=== PATIENT | female | born 1955 | race Caucasian/White ===

== ENCOUNTER 2020-02-13 09:45 | Outpatient (REF) | payer OTHER, SELFPAY ==
--- NOTE | 2020-02-13 15:45 | MHC.AU.P13 ---
Hearing Aid Evaluation- Binaural Date of Visit: 02/13/20 Description of Hearing: Madyson brings with her a hearing test performed on 02/04/2020 at [facility]. Test results indicate mild sloping to prfound high frequency sensorineural hearing loss bilaterally with 84% speech discrimination for the right ear and 96% for the left ear at 65 dB HL Summary: Discussed the pros and cons of the various hearing aid styles and manufactures. Also extensively discussed realistic expectations of amplification and the need to wear the aids every day, all day for aids to be beneficial. Patient has difficulty with ear moisture so discussed the rechargeable style will be the most waterproof . Hearing Instrument Selection: Right Ear: Supervisor Alum Plant: Phonak Model: Audeo M 70 R Battery Size: Rechargeable Color: [place] Green Building Energy Engineer: #1 medium Type of Dome: small or medium open Left Ear: Supervisor Alum Plant: Phonak Model: Audeo M 70-R Battery Size: Rechargeable Color: [place] Green Building Energy Engineer: #1 medium Type of Dome: small or medium open Recommendations: Recommendations: Quote will be sent to [facility]. A signed medical clearance form is required from a physician. Diagnosis Code(s): Primary Diagnosis: H90.3 Bilateral Sensorineural Hearing Loss Services Performed: Hearing Aid Evaluation and Earmold:: Hearing Aid Evaluation- Binaural Signature: Student/Clinical Fellow: No I have reviewed/agreed with student/fellow documentation: N/A Provider: Cally Joe, [facility]
== END 2020-02-13 09:46 | disposition home or self-care (01) ==
LOC: HO.SH 09:45
PROVIDERS: PCP Internal Medicine Geriatric Medicine; Visit Provider Internal Medicine Geriatric Medicine
DX: H90.3 Sensorineural hearing loss, bilateral (principal)
CPT/HCPCS: 92591

== ENCOUNTER 2020-04-02 09:49 | Outpatient (REF) | payer OTHER, SELFPAY | END 2020-04-02 09:50 | disposition home or self-care (01) | LOC: HO.HAP 09:49 | PROVIDERS: PCP Internal Medicine Geriatric Medicine; Referring Provider Internal Medicine Geriatric Medicine; Visit Provider Internal Medicine Geriatric Medicine | DX: H90.3 Sensorineural hearing loss, bilateral (principal); Z46.1 Encounter for fitting and adjustment of hearing aid | CPT/HCPCS: 92595; V5011; V5020; V5160; V5261 ==

== ENCOUNTER 2020-04-19 09:37 | Outpatient (REF) | payer OTHER, SELFPAY | END 2020-04-19 09:38 | disposition home or self-care (01) | LOC: HO.HAP 09:37 | PROVIDERS: PCP Internal Medicine Geriatric Medicine; Referring Provider Internal Medicine Geriatric Medicine; Visit Provider Internal Medicine Geriatric Medicine | DX: Z13.89 Encounter for screening for other disorder (principal) | CPT/HCPCS: 92700 ==

== ENCOUNTER 2020-06-03 09:22 | Outpatient (REF) | payer SELFPAY | END 2020-06-03 09:23 | disposition home or self-care (01) | LOC: HO.HAP 09:22 | PROVIDERS: Visit Provider Internal Medicine Geriatric Medicine | DX: Z13.89 Encounter for screening for other disorder (principal) ==

== ENCOUNTER 2020-08-11 08:31 | Outpatient (REF) | payer SELFPAY | END 2020-08-11 08:32 | disposition home or self-care (01) | LOC: HO.HAP 08:31 | PROVIDERS: Visit Provider Internal Medicine Geriatric Medicine | DX: Z13.89 Encounter for screening for other disorder (principal) ==

== ENCOUNTER 2020-08-13 08:35 | Outpatient (REF) | payer SELFPAY | END 2020-08-13 08:36 | disposition home or self-care (01) | LOC: HO.HAP 08:35 | PROVIDERS: Visit Provider Internal Medicine Geriatric Medicine | DX: Z13.89 Encounter for screening for other disorder (principal) ==

== ENCOUNTER 2020-08-23 14:43 | Outpatient (REF) | payer SELFPAY ==
--- NOTE | 2020-08-23 15:09 | MHC.AU.HFU ---
Hearing Instrument Follow-Up- Binaural Date of Visit: 08/23/20 Right Ear: Data Integration Developer: Phonak Model: Audeo M 70 R Serial Number: [id number] Repair Warranty: 05/30/2023 Loss and Damage Warranty: 05/30/2023 Battery Size: Rechargeable Color: [place] Dental Intern: #0 medium Type of Dome: small vented Type of Wax Guard: CeruShield Left Ear: Data Integration Developer: Phonak Model: Audeo M 70-R Serial Number: [id number] RepairWarranty: 05/30/2023 Loss and Damage Warranty: 05/30/2023 Battery Size: Rechargeable Color: [place] Dental Intern: #0 medium Type of Dome: small vented Type of Wax Guard: CeruShield Follow-Up Summary: Nick's left hearing aid was dropped off on 08/16/2020, reporting it was not working or charging properly. When initially placed in the pheresis nurse, the light would not turn on. When it was taken out and placed back in, the light would blink then stay red. It would not turn back on either manually or through use of the pheresis nurse. It was also noted that the nurse reviewer wire was bent backwards, suggesting that there may be issues with how the patient is placing the instrument in her ear or how it is fitting in her ear. Recommendations: Recommendations:The instrument was sent out for repair. The pheresis nurse is in the repair drawer. Patient will be contacted when the repaired instrument has returned. Diagnosis Code(s): Primary Diagnosis: H90.3 Bilateral Sensorineural Hearing Loss Signature: Provider: Cally Luna, [facility]
== END 2020-08-23 14:44 | disposition home or self-care (01) ==
LOC: HO.HAP 14:43
PROVIDERS: Visit Provider Internal Medicine Geriatric Medicine
DX: Z13.89 Encounter for screening for other disorder (principal)

== ENCOUNTER 2020-09-02 12:52 | Outpatient (REF) | payer SELFPAY | END 2020-09-02 12:53 | disposition home or self-care (01) | LOC: HO.HAP 12:52 | PROVIDERS: Visit Provider Internal Medicine Geriatric Medicine | DX: Z13.89 Encounter for screening for other disorder (principal) ==

== ENCOUNTER 2020-09-06 15:47 | Outpatient (REF) | payer SELFPAY ==
--- NOTE | 2020-09-07 11:24 | MHC.AU.P13 ---
Hearing Instrument Problem Date of Visit: 09/07/20 Right Ear: Polarity Tester: Phonak Model: Audeo M 70 R Serial Number: [id number] Repair Warranty: 05/30/2023 Loss and Damage Warranty: 05/30/2023 Battery Size: Rechargeable Color: [place] Clothes Marker: #0 medium Type of Dome: small vented Type of Wax Guard: CeruShield Left Ear: Polarity Tester: Phonak Model: Audeo M 70-R Serial Number: [id number] Repair Warranty: 05/30/2023 Loss and Damage Warranty: 05/30/2023 Battery Size: Rechargeable Color: [place] Clothes Marker: #0 medium Type of Dome: small vented Type of Wax Guard: CeruShield Follow-Up Summary: Right aid was dropped off stating not working and missing wire. Aid needed to be fully charged, cleaned and replaced wax guard and small vented dome, added retention tail (assuming that is wire patient stated missing) - aid amplifying clearly. Scheduling appointment for last picker. Signature: Provider: BENJA Reyes-HIS
== END 2020-09-06 15:48 | disposition home or self-care (01) ==
LOC: HO.HAP 15:47
PROVIDERS: Visit Provider Internal Medicine Geriatric Medicine
DX: Z13.89 Encounter for screening for other disorder (principal)

== ENCOUNTER 2020-10-05 09:27 | Outpatient (REF) | payer SELFPAY | END 2020-10-05 09:28 | disposition home or self-care (01) | LOC: HO.HAP 09:27 | PROVIDERS: Visit Provider Internal Medicine Geriatric Medicine | DX: Z13.89 Encounter for screening for other disorder (principal) ==

== ENCOUNTER 2021-01-07 09:50 | Outpatient (REF) | payer SELFPAY | END 2021-01-07 09:51 | disposition home or self-care (01) | LOC: HO.HAP 09:50 | PROVIDERS: Visit Provider Internal Medicine Geriatric Medicine | DX: Z13.89 Encounter for screening for other disorder (principal) ==

== ENCOUNTER 2022-04-18 09:45 | Outpatient (REF) | payer SELFPAY ==
--- NOTE | 2022-04-18 14:49 | MHC.AU.HFU ---
Hearing Instrument Follow-Up- Binaural Date of Visit: 04/18/22 Right Ear: Serial Number: Palma [id number]-R, [id number], sandalwood Repair Warranty: 05/31/2023 Loss and Damage Warranty: 05/31/2023 Battery Size: Rechargeable Color: [place] Gas Examiner: #0 medium Type of Dome: small vented Type of Wax Guard: CeruShield Dispensed By: [facility] Date of Fittin04/02/2020 Left Ear: Serial Number: Palma [id number]-R, [id number], sandalwood Repair Warranty: 05/31/2023 Loss and Damage Warranty: 05/31/2023 Battery Size: Rechargeable Gas Examiner: #0 medium Type of Dome: small vented Type of Wax Guard: CeruShield Dispensed By: [facility] Date of Fittin04/02/2020 Follow-Up Summary: The patient is here today for a hearing aid check as her right hearing aid has not been working for the past month. She also reports right ear pain for the past 1-2 weeks. She had cerumen removed at her PCPs office yesterday, right ear had more cerumen than the left ear. She states they used both a curette and irrigation to remove the cerumen. She was put on amoxicillin as her right ear canal appeared red yesterday. Otoscopy today is unremarkable. No cerumen or redness noted in either ear. I counseled the patient that some times with cerumen removal, it can take a few days for fullness/discomfort to resolve. I suggested she continue on the antibiotic as prescribed and see how her ears feel once she completes the regimen. She is in the process of getting a new ENT ([facility]) and is waiting to be scheduled with them. She should reach out to her PCP should ear discomfort persist after the next 1-2 weeks. Note, the patient states she often builds up cerumen and does experience ear pain typically when she does have a build up. Hearing aid check reveals cerumen/debris on the domes/wax guards. I replaced them and thoroughly brushed/cleaned right and left hearing aids. I also cleaned the hearing aid tool and die maker. Listening check reveals clear sound. The patient was very happy to report good sound bilaterally. We reviewed cleaning and hearing aid care. I recommended an updated audiogram and explained the need for an order from her PCP to schedule. Additional follow-up as needed. No charge today, under warranty. Diagnosis Code(s): Primary Diagnosis: H90.3 Bilateral Sensorineural Hearing Loss Signature: Provider: Cally Joseph, CCC-A
== END 2022-04-18 09:46 | disposition home or self-care (01) ==
LOC: HO.HAP 09:45
PROVIDERS: Visit Provider Internal Medicine Geriatric Medicine
DX: Z13.89 Encounter for screening for other disorder (principal)

== ENCOUNTER 2023-04-11 08:51 | Outpatient (AMB) | payer MEDICARE, MEDICAID, SELFPAY ==
--- NOTE | 2023-04-11 08:51 | AM.OFFWIN_ITS ---
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 Patient Tobacco Use Status: Never used Tobacco Allergies codeine Adverse Reaction (Intermediate, Verified 04/11/23 08:52) Vomiting HPI HPI Comments History of Present Illness Details She presents to office with ear wax build up bilaterally + hearing aids Feels iike pressure R side and a little in left No drainage No fever or chills + intermitent headache/dizzy which she a lways gets with earwax PFSH Social History Patient Tobacco Use Status: Never used Tobacco Review of Systems Const Denies fever(s) and Reports headache(s) ENT Reports dizziness, Reports headache(s), Reports hearing loss, Denies nasal congestion, Denies nasal discharge, Denies neck mass and Denies sore throat Neuro Reports dizziness and Reports headache(s) Physical Exam Vital Signs: Last Vital Signs Pulse 67 04/11/23 08:54 BP 146/80 H 04/11/23 08:54 Pulse Ox 97 04/11/23 08:54 Oxygen Delivery Method Room Air 04/11/23 08:54 BMI result Body Mass Index 32.8 General: Non-toxic, NAD. Speaking full sentences. Skin: Warm dry throughout HENT: Cerumen bilaterally but can visualize Tm without erythema. Post procedure, canals clear TM non-erythematous, non-bulging. No TM perforation or hemotympanum noted. Respiratory: No respiratory distress MSK: Full ROM extremities. Neurology: No aphasia or facial droop. Gait without abnormality Psych: Good mood and affect Office Procedures Cerumen Removal From which ear canal was the cerumen removed: bilateral Removal: otoscope w/curette Notes: patient tolerated procedure well, no complications and ear canal clear [id number] Wax Removal by Spoon/Curette Assessment & Plan Assessment & Plan (1) Impacted cerumen of both ears: Code(s): H61.23 - Impacted cerumen, bilateral Plan: Patient seen and evaluated. Verbal consent obtained, Curette used to remove cerumen bilaterally Canals clear without TM erythema, perforation. No canal FB or edema noted. Pt tolerated well without complication Coding Level of Care Code New Pt Level 3 (74421) Diagnoses Impacted cerumen of both ears H61.23 CPT Codes Office Procedure - CPT: 00047-Jps Wax Removal by Spoon/Curette ([id number])
[2023-04-11 08:54] VITALS: BP 146/80; PULSE 67; O2SAT 97; BMI 32.8
== END 2023-04-11 10:22 | disposition home or self-care (01) ==
PROVIDERS: PCP Internal Medicine Geriatric Medicine; Visit Provider Physician Assistant
DX: H61.23 Impacted cerumen, bilateral (principal)
CPT/HCPCS: 69210; 99203

== ENCOUNTER 2023-05-12 09:07 | Outpatient (AMB) | payer MEDICARE, MEDICAID, SELFPAY ==
--- NOTE | 2023-05-12 10:08 | MHC.OFFWIV ---
Intake Vital Signs 05/12/23 10:15 Height 5 ft 3 in Weight 185 lb BMI 32.8 BP 154/90 H Blood Pressure Location Rt brachial Position Sitting Pulse 74 Pulse Source Pulse Oximeter Pulse Oximetry (%) 99 Oxygen Delivery Method Room Air Intake Visit Reasons: EST/right ear pain ([phone]) Intake Note: Pt is here today c/o Rt ear pain x6days Patient Tobacco Use Status: Never used Tobacco Allergies codeine Adverse Reaction (Intermediate, Verified 05/12/23 10:09) Vomiting Do you need a note to return to daycare/school/sports/work: No HPI HPI Comments History of Present Illness Details This is a 67-year-old female presenting for evaluation of right ear pain that she has had for the past 6 days. Patient describes an aching pain in her right ear that has worsened slightly over the past 3 days. Patient has taken Tylenol without relief of her discomfort. She denies having any fevers, chills, sore throat or difficulty swallowing. Additionally, patient denies any recent sick contacts. PFSH Social History Patient Tobacco Use Status: Never used Tobacco Review of Systems Const Denies chills, Denies fatigue and Denies fever(s) Eyes Reports no additional complaints ENT Reports otalgia (right), Denies mouth pain, Denies sinus pain, Denies sinus pressure and Denies sore throat Card Reports no additional complaints Resp Reports no additional complaints Neuro Reports no additional complaints Endo Denies fatigue Physical Exam Vital Signs: Last Vital Signs Pulse 74 05/12/23 10:15 BP 154/90 H 05/12/23 10:15 Pulse Ox 99 05/12/23 10:15 Oxygen Delivery Method Room Air 05/12/23 10:15 BMI result Body Mass Index 32.8 T 98.9 Const General: cooperative, healthy appearing, comfortable, no acute distress, alert and awake Nutritional Appearance: well nourished Orientation/consciousness: patient oriented x3 Limitations: no limitations HEENT Head: Yes normal to inspection Ears: hearing grossly normal bilaterally, external ears normal, right TM abnormal (TM erythematous, bulging, no fluid level), TM normal on the left and EAC's normal General nose exam: Normal external nose present Face and sinus: Yes normal facial exam and No sinus tenderness Mouth: Normal oral and palatal mucosa present, tongue normal and moist mucous membranes Teeth and gingiva: dentition normal Throat: Yes posterior oropharynx normal (There is no edema, erythema or exudates of the posterior oropharynx) and No postnasal drainage Eyes Conjunctivae: conjunctivae normal Sclerae: sclerae normal Corneas: corneas normal Pupils: Equal, round and reactive pupils present EOM: EOMs intact bilaterally Neck Lymphatic: no lymphadenopathy noted Cardio Rate: regular rate Rhythm: regular rhythm Neuro General: patient oriented x3 Cranial nerves: Yes Equal, round and reactive pupils present Psych Appearance: grossly normal Mental Status: mental status grossly normal Insight: Good insight present (Psych) Judgement: Good judgement present (Psych) Assessment & Plan Assessment & Plan (1) Otitis media of right ear: Code(s): H66.91 - Otitis media, unspecified, right ear Plan: Amoxicillin t.i.d. x7 days; Tylenol or ibuprofen as needed for discomfort. Medications: New amoxicillin 500 mg PO TID 21 caps 0RF Coding Level of Care Code New Pt Level 3 (30158) Diagnoses Otitis media of right ear H66.91 Time Spent (min) 20
[2023-05-12 10:15] VITALS: BP 154/90; PULSE 74; O2SAT 99; BMI 32.8
== END 2023-05-12 11:19 | disposition home or self-care (01) ==
PROVIDERS: PCP Internal Medicine Geriatric Medicine; Visit Provider Physician Assistant
DX: H66.91 Otitis media, unspecified, right ear (principal)
CPT/HCPCS: 99051; 99203

== ENCOUNTER 2023-11-09 13:02 | Outpatient (AMB) | payer MEDICARE, SELFPAY ==
[2023-11-09 13:23] VITALS: BP 130/82; PULSE 75; TEMP 37; O2SAT 97; BMI 30.7
--- NOTE | 2023-11-09 13:23 | AM.OFFWIN_ITS ---
Intake Vital Signs 11/09/23 13:23 Height 5 ft 3 in Weight 173 lb 8 oz BMI 30.7 BP 130/82 Blood Pressure Location Lt brachial Position Sitting Pulse 75 Pulse Source Pulse Oximeter Temp 98.6 F Temp Source Oral Pulse Oximetry (%) 97 Intake Visit Reasons: EP Ears/throat Intake Note: pt is here for ears and throat discomfort Patient Tobacco Use Status: Never used Tobacco Allergies codeine Adverse Reaction (Intermediate, Verified 11/09/23 13:23) Vomiting Do you need a note to return to daycare/school/sports/work: No HPI HPI Comments History of Present Illness Details 68 y/o female patient who presents to [facility] in clinic with c/o nasal congestion, sore throat and dry cough x 7 days. PFSH Social History Patient Tobacco Use Status: Never used Tobacco Review of Systems Const All systems reviewed & are unremarkable except as noted in HPI and below Physical Exam Vital Signs: Last Vital Signs Temp 98.6 F 11/09/23 13:23 Pulse 75 11/09/23 13:23 BP 130/82 11/09/23 13:23 Pulse Ox 97 11/09/23 13:23 BMI result Body Mass Index 30.7 Const General: comfortable and no acute distress Nutritional Appearance: overweight Orientation/consciousness: patient oriented x3 HEENT Head: Yes normocephalic Ears: external ears normal and TM abnormal with fluid behind the TM bilateral General nose exam: Abnormal mucous membranes and turbinates present boggy and erythematous Face and sinus: Yes sinuses nontender Mouth: moist mucous membranes Throat: Yes posterior oropharynx normal Resp Effort & Inspection: normal respiratory effort and able to speak in complete se ntences Auscultation: clear to auscultation bilaterally, no crackles, no rales, no rhonchi and no wheezes Cardio Rate: regular rate Rhythm: regular rhythm Neuro General: patient oriented x3, gait normal and moves all extremities Psych Speech and movement: Normal speech and movement present Results AMB Rapid Strep AMB Rapid Strep Negative Last Edit by Darrin Astudillo CMA on 11/09/23 13 :44 Assessment & Plan Assessment & Plan (1) Allergic rhinitis: Code(s): J30.9 - Allergic rhinitis, unspecified Qualifiers: Allergic rhinitis trigger: unspecified Allergic rhinitis seasonality: seasonal Qualified Code(s): J30.2 - Other seasonal allergic rhinitis Plan: Zyrtec BID (AM and PM) Flonase BID (2 Puffs each Nostril). OTC Sore throat remedies Warm fluids with honey Rest Orders: Orders AMB Rapid Strep Screen Today Z13.9 - Encounter for screening, unspecified Medications: New cetirizine (Zyrtec) TAKE DIRECTED BY 10 mg PO DAILY PRN 90 tabs 0RF allergy symptoms Coding Level of Care Code Est Pt Level 3 (47303) Diagnoses Seasonal allergic rhinitis, unspecified trigger J30.2 Allergic rhinitis trigger: unspecified Allergic rhinitis seasonality: seasonal Time Spent (min) 15
== END 2023-11-09 14:02 | disposition home or self-care (01) ==
PROVIDERS: PCP Internal Medicine Geriatric Medicine; Visit Provider Nurse Practitioner Family
DX: J30.2 Other seasonal allergic rhinitis (principal)
CPT/HCPCS: 87880; 99213

== ENCOUNTER 2023-12-11 09:42 | Outpatient (REF) | payer SELFPAY ==
--- NOTE | 2023-12-11 10:31 | MHC.AU.HA3 ---
Hearing Instrument Follow-Up- Binaural Date of Visit: 12/11/23 Right Ear: Lawrence, Model, Color, Serial Number: Palma Hernandez [id number]-[id number] SN: [id number] Color: [place] Drawing Tracer Repair Warranty: 05/31/2023 Drawing Tracer Loss and Damage Warranty: 05/31/2023 Battery Size: Rechargeable Cruise Agent/Slim Tube: 0M Earmold/Dome/CShell/SlimTip:Small vented dome (no retention tail) Type of Wax Guard: CeruShield Dispensed By: [facility] Date of Fittin04/02/2020 Left Ear: Lawrence, Model, Color, Serial Number: Palma Hernandez [id number] SN: [id number] Color: [place] Drawing Tracer Repair Warranty: 05/31/2023 Drawing Tracer Loss and Damage Warranty: 05/31/2023 Battery Size: Rechargeable Cruise Agent/Slim Tube: 0M Earmold/Dome/CShell/SlimTip: Small vented dome (no retention tail) Type of Wax Guard: CeruShield Dispensed By: [facility] Date of Fittin04/02/2020 Follow-Up Summary: Both hearing aids, senior staff psychologist, cord, and wall plug dropped off reporting right hearing aid . 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 Multiple CeruShields in right port traffic manager, occluded with wax. Left wax guard partially occluded. Able to remove all wax guards from right port traffic manager. Cleaned both hearing aids. Replaced domes and wax guards. Vacuumed microphones. Ran through dehumidifier. Listening check demonstrated hearing aids amplifying clearly. Connected to [employer] to check for firmware updates, none available. Data logging showed about 2.5 hours of use/day. Recommendations: Hearing instrument follow-up or maintenance as needed. Please contact our clinic with any questions or concerns. Diagnosis Code(s): Primary Diagnosis: H90.3 Bilateral Sensorineural Hearing Loss Signature: Provider: Mika Gomes, [facility]
== END 2023-12-11 09:43 | disposition home or self-care (01) ==
LOC: HO.HAP 09:42
PROVIDERS: Visit Provider Internal Medicine Geriatric Medicine
DX: Z46.1 Encounter for fitting and adjustment of hearing aid (principal); H90.3 Sensorineural hearing loss, bilateral
CPT/HCPCS: 92593

== ENCOUNTER 2024-04-12 10:09 | Outpatient (AMB) | payer OTHER, SELFPAY ==
[2024-04-12 11:26] VITALS: BP 144/78; PULSE 64; TEMP 36.8; O2SAT 99; BMI 30.6
--- NOTE | 2024-04-12 11:26 | MHC.OFFWIV ---
Intake Vital Signs 04/12/24 11:26 Height 5 ft 3 in Weight 173 lb BMI 30.6 BP 144/78 H Blood Pressure Location Lt brachial Position Sitting Pulse 64 Pulse Source Pulse Oximeter Temp 98.2 F Temp Source Oral Pulse Oximetry (%) 99 Oxygen Delivery Method Room Air Intake Visit Reasons: EP Poked herself in the eye Intake Note: Pt is here today c/o Lt eye irritation due to poking it with eye drop medication Patient Tobacco Use Status: Never used Tobacco Allergies codeine Adverse Reaction (Intermediate, Verified 04/18/24 08:26) Vomiting HPI EP Poked herself in the eye HPI Details Patient is a 68-year-old female with history of glaucoma, who was putting in her eye drops with the when she poked herself in the left eye with the tip of the bottle. She woke up the next morning with redness, and irritation with discharge to the left eye. No report of headache or dizziness, fever chills, myalgias or malaise or other significant associated systemic symptoms of infection. [facility] Social History Patient Tobacco Use Status: Never used Tobacco Review of Systems Const All systems reviewed & are unremarkable except as noted in HPI and below Physical Exam Vital Signs: Last Vital Signs Temp 98.2 F 04/12/24 11:26 Pulse 64 04/12/24 11:26 BP 144/78 H 04/12/24 11:26 Pulse Ox 99 04/12/24 11:26 Oxygen Delivery Method Room Air 04/12/24 11:26 BMI result Body Mass Index 30.6 Eyes General: appearance abnormal, both eyes Alignment and Position: alignment normal and position normal Periorbital: periorbital findings normal Eyelids: Yes eyelids normal Conjunctivae: conjunctival abnormal left Sclerae: scleral abnormal Corneas: corneas abnormal (superficial uptake as pictured) on the left and fluorescein used Pupils: Equal, round and reactive pupils present EOM: EOMs intact bilaterally Eyes/upper lids images: 1. superficial abrasion appearance of uptake on exam Neuro Cranial nerves: Yes Equal, round and reactive pupils present Assessment & Plan Assessment & Plan (1) Conjunctival abrasion: Code(s): S05.00XA - Injury of conjunctiva and corneal abrasion without foreign body, unspecified eye, initial encounter Qualifiers: Encounter type: initial encounter Laterality: left Qualified Code(s): S05.02XA - Injury of conjunctiva and corneal abrasion without foreign body, left eye, initial encounter Plan Patient is a 68-year-old female with history of glaucoma, who was putting in her eye drops with the when she poked herself in the left eye with the tip of the bottle. It was apparently sterile, however she woke up the next morning with redness, and irritation with discharge to the left eye. No report of headache or dizziness, fever chills, myalgias or malaise or other significant associated systemic symptoms of infection. She had relief with tetracaine, and then under fluorescein staining, I was able to see an abrasion pattern of fluorescein uptake to her left eye as described above. I wrote her for a course of trimethoprim B sulfa eye drops, and I advised that she follow up with her performing arts technicians on Sunday or Sunday for re-evaluation to be sure that it is healing. She can be evaluated in the emergency department if she develops any worrisome symptoms in the meantime. Medications: New polymyxin B sulf-trimethoprim 10,000 unit- 1 mg/mL while awake; do not exceed 6 doses in 24 hours 1 drp ophthalmic (eye) QID 10 mL 0RF 5 days Coding Level of Care Code Est Pt Level 4 (41714) Diagnoses Abrasion of left conjunctiva, initial encounter S05.02XA Encounter type: initial encounter Laterality: left
== END 2024-04-12 13:26 | disposition home or self-care (01) ==
PROVIDERS: PCP Internal Medicine Geriatric Medicine; Visit Provider Physician Assistant Medical
DX: S05.02XA Injury of conjunctiva and corneal abrasion without foreign body, left eye, initial encounter (principal)

== ENCOUNTER → 2024-04-18 08:06 | Outpatient (BNVA) | payer OTHER, SELFPAY | PROVIDERS: PCP Internal Medicine Geriatric Medicine; Visit Provider Physician Assistant ==

== ENCOUNTER 2024-04-18 08:10 | Outpatient (AMB) | payer OTHER, SELFPAY ==
[2024-04-18 08:11] VITALS: BP 130/90; PULSE 71; TEMP 36.7; O2SAT 98; BMI 30.1
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
== END 2024-04-18 08:58 | disposition home or self-care (01) ==
PROVIDERS: PCP Internal Medicine Geriatric Medicine; Visit Provider Physician Assistant
DX: J01.80 Other acute sinusitis (principal)

== ENCOUNTER 2024-12-08 13:30 | Outpatient (AMB) | payer OTHER, SELFPAY ==
--- OUTSIDE RECORDS SUMMARY | 2024-12-08 14:11 | XMS_ITS | Data Portability ---
Author Organization [place] - [facility], Allergy Address [address] [address] Care Team Providers Care Senior Director Finance Name Role Phone SHABNAMBARON SANDY Primary Care Provider [phone] Assessment Encounter Date Assessment Date Assessment LastModified by Organization Details LastModified Time 08/01/2024 08/01/2024 69yo female presents for evaluation of nasal congestion. She contracted the flu 4 months ago and reports nasal congestion since. She trialed amoxicillin for 7 days with moderate symptom improvement. Nasal endoscopy demonstrates left-sided mucopus at the middle meatus. No obvious nasal polyps or obstruction. Recommend Augmentin twice daily for 21 days. Patient will continue saline irrigations. We discussed that with her history of glaucoma, she should discontinue intranasal fluticasone until approved by her site supervisor. Recommend alternating between acetaminophen and ibuprofen for facial pain as tolerated. Patient will follow-up in 3 to 4 weeks for reevaluation. She agrees to postpone her dental implant surgery until medically cleared. [email or web address] Not available 08/01/2024 12:07:06 10/10/2024 10/10/2024 69-year-old female presents for reevaluation of acute sinusitis. Symptoms resolved with Augmentin. She is asymptomatic today. She reports nasal congestion recurrence only when she turns the heat on in her home, and plans to have her heat system cleaned. Cerumen impactions removed bilaterally. TMs are normal to inspection. Hearing returned to baseline after debridement. Anterior rhinoscopy with 1+ inferior turbinate hypertrophy. Recommend continuation of Xyzal as needed for subjective allergic rhinitis. Patient will follow-up in 1 year for routine cerumen debridement. All questions answered. [email or web address] Not available 10/10/2024 16:41:26 Plan of Treatment Reminders Order Date Submit Date Provider Last Modified By Organization Details Last Modified Time Details Appointments Establish ed 15 2025 03:45P M YVONNE LINDSEY PA-C Not available Not available Not available Lab None recorded. Referral None recorded. Procedures None recorded. Surgeries None recorded. Imaging None recorded. Medication Orders amoxicill in 875 mg-potass ium clavulana te 125 mg tablet 2024 025 [place] [id number], [address] [place], [place], [phone], 10/10/2024 16:06:57 Patient TargetsNo targets recorded. Patient InstructionsNo instructions recorded. Reason for Referral None Reported. Problems Name Problem SNOMED Code Status Onset Date Resolution Date Notes Provider Name and Address Organization Details Recorded Time Peritonsi llar abscess 84737769 Active 2017 Peritonsi llar abscess; Note: Date Diagnosed : 07/09/2017 5:13 PM (J36) Not Available [facility] 4 02:56:31 Acute tonsillit is 66646171 Active 2017 Acute tonsillit is due to other specified organisms ; Note: Date Diagnosed : 07/09/2017 5:09 PM (J03.8) Not Available [facility] 4 02:56:32 Impacted cerumen in right ear 44511952475 60147 Active 2022 Impacted cerumen, right ear; Note: Date Diagnosed : 09/25/2022 9:44 AM (H61.21) Not Available [facility] 4 02:56:30 Otalgia of right ear 7298380974 Active 2022 Otalgia, right ear; Note: Date Diagnosed : 09/25/2022 9:44 AM (H92.01) Not Available [facility] 4 02:56:31 Polyp of nasal cavity 395422311 Active 2023 Nasophary ngeal polyp; Note: Date Diagnosed : 06/07/2023 9:23 AM (J33.0) Not Available [facility] 4 02:56:30 Mass of neck 657961460 Active 2023 Localized swelling, mass and lump, neck; Note: Date Diagnosed : 06/07/2023 9:23 AM (R22.1) Not Available [facility] 4 02:56:30 Neck swelling 622059120 Active 2023 Localized swelling, mass and lump, neck; Note: Date Diagnosed : 06/07/2023 9:23 AM (R22.1) Not Available [facility] 4 02:56:30 Nasal congestio n 79583649 Active 2024 YVONNE LINDSEY PA-C [address], [place], [address] , [facility] - [facility] 5 21:10:04 Acute sinusitis 45069822 Active 2024 YVONNE LINDSEY PA-C [address] [facility], [place], [address] , [place] - [facility] [place] [place] 5 09:44:25 Impacted cerumen of bilateral ears 67755456440 88253 Active 2024 YVONNE LINDSEY PA-C [address], [place], [address] , [place] - [facility] [place] 16:41:46 Problem Notes None recorded. Procedures Surgical History Date Name Laterality Status Provider Name and Address Organization Details Recorded Time Cerumen removal without microscope bilat completed YVONNE LINDSEY PA-C [address] [facility], [place], [address], [facility] - [facility] 10/10/2024 16:23:34 NasalEndoscopy_ DP completed YVONNE LINDSEY PA-C [address],[place] [facility], [place], [address], [facility] - [facility] 08/01/2024 09:48:53 Imaging Results None recorded. Procedure Notes None recorded. Medical Equipment None Reported. Allergies Allergen ID Allergen Name Allergen Category Reaction Reaction Severity Criticality Documentation Date Start Date Code Code System Note Provider Name and Address Organization Details Recorded Time 76781 codeine sulfate medicatio n other Not available Not available 09/25/2023 90562 RxNorm React ion: unkno wn, unspe cifie d;; Not Available [facility] 01:06:08 Medications Name Sig Start Date Stop Date Status Note LastModified by Organization Details LastModified Time doxycycli ne hyclate 100 mg capsule TAKE 1 CAPSULE BY MOUTH TWICE DAILY FOR 7 DAYS 08/01 completed Not Available Not Available Not Available atorvasta tin 20 mg tablet TAKE 1 TABLET BY MOUTH DAILY active Not Available Not Available No t Available lisinopri l 20 mg-hydroc hlorothia zide 12.5 mg tablet TAKE 2 TABLETS BY MOUTH DAILY 08/01 completed Not Available Not Available Not Available brinzolam rudy 1 % eye drops,allison pension 08/01 completed Medicati on ID: [id number] B rand Name: burak ordaz Sen d Method: E-Prescr ibed Sub s Allowed: subs OK Medic ationGen ericName : brinzola josee Not Available Not Available Not Available prednison e 20 mg tablet Take 2 tablet by mouth every morning as directed 08/01 completed Medicati on ID: [id number] D uration Value: 2 Prescri bed By Name: Zohreh Barahona nd Name: predniso ne Send Method: E-Prescr ibed Sub s Allowed: subs OK Speci al Instruct ion: 2 tabs daily for 2 days Med icationG enericNa me: predniso ne Not Available Not Available Not Available penicilli n V potassium 500 mg tablet TAKE 1 TABLET BY MOUTH FOUR TIMES DAILY 08/01 completed Not Available Not Available Not Available amlodipin e 2.5 mg tablet 08/01 completed Medicati on ID: [id number] B rand Name: amlodipi ne Send Method: E-Prescr ibed Sub s Allowed: subs OK Medic ationGen ericName : amlodipi ne Not Available Not Available Not Available doxycycli ne monohydra te 100 mg tablet 08/01 completed Medicati on ID: [id number] B rand Name: doxycycl ine monohydr ate Send Method: E-Prescr ibed Sub s Allowed: subs OK Medic ationGen ericName : doxycycl ine monohydr ate Not Available Not Available Not Available amoxicill in 500 mg tablet TAKE 4 TABLETS BY MOUTH 1 TIME FOR 1 DAY TAKE 4 TABLETS 30 MINUTES BEFORE DENTAL VISITS 08/01 completed Not Available Not Available Not Available prednisol one acetate 1 % eye drops,allison pension 08/01 completed Medicati on ID: [id number] B rand Name: predniso lone acetate Send Method: E-Prescr ibed Sub s Allowed: subs OK Medic ationGen ericName : predniso lone acetate Not Available Not Available Not Available polymyxin B sulfate 10,000 unit-trim ethoprim 1 mg/mL eye drops 08/01 completed Not Available Not Available Not Available Claritin- D 12 Hour 5 mg-120 mg tablet,ex tended release active Medicati on ID: [id number] B rand Name: Claritin -D 12 Hour Sen d Method: E-Prescr ibed Sub s Allowed: subs OK Speci al Instruct ion: TAKE 1 TABLET BY MOUTH EVERY 12 HOURS FOR 7 DAYS Med ication enericNa me: Claritin -D 12 Hour Not Available Not Available Not Available omeprazol e 20 mg capsule,d elayed release TAKE 1 CAPSULE BY MOUTH DAILY active Not Available Not Available No t Available lisinopri l 20 mg-hydroc hlorothia zide 25 mg tablet TAKE 2 TABLETS BY MOUTH DAILY active Not Available Not Available No t Available aspirin 81 mg chewable tablet 08/01 completed Medicati on ID: [id number] B rand Name: aspirin Send Method: E-Prescr ibed Sub s Allowed: subs OK Medic ationGen ericName : aspirin Not Available Not Available Not Available hydroxyzi ne HCl 25 mg tablet 08/01 completed Medicati on ID: [id number] B rand Name: hydroxyz ine HCl Send Method: E-Prescr ibed Sub s Allowed: subs OK Medic ationGen ericName : hydroxyz ine HCl Not Available Not Available Not Available lovastati n 20 mg tablet 08/01 completed Medicati on ID: [id number] D uration Value: 30 Brand Name: lovastat in Send Method: E-Prescr ibed Sub s Allowed: subs OK Medic ationGen ericName : lovastat in Not Available Not Available Not Available timolol maleate 0.5 % eye drops INSTILL 1 DROP TO BOTH EYES EVERY MORNING 08/01 completed Not Available Not Available Not Available celecoxib 100 mg capsule TAKE 1 CAPSULE BY MOUTH TWICE DAILY NEEDED FOR SEVERE PAIN 08/01 completed Not Available Not Available Not Available fluticaso ne propionat e 50 mcg/actua tion nasal spray,allison pension active Medicati on ID: [id number] B rand Name: fluticas one propiona te Send Method: E-Prescr ibed Sub s Allowed: subs OK Medic ationGen ericName : fluticas one propiona te Not Available Not Available Not Available doxycycli ne hyclate 100 mg tablet TAKE 1 TABLET BY MOUTH TWICE DAILY 08/01 completed Not Available Not Available Not Available loratadin e 10 mg tablet 08/01 completed Medicati on ID: [id number] B rand Name: loratadi ne Send Method: E-Prescr ibed Sub s Allowed: subs OK Speci al Instruct ion: TAKE 1 TABLET BY MOUTH DAILY Me dication GenericN fish: loratadi ne Not Available Not Available Not Available diazepam 5 mg tablet TAKE 1/2 TABLET BY MOUTH 1 HOUR BEFORE PROCEDUR E. MAY REPEAT 1 TIME ON ARRVAL NEEDED 08/01 completed Not Available Not Available Not Available amoxicill in 875 mg-potass ium clavulana te 125 mg tablet TAKE 1 TABLET BY MOUTH EVERY 12 HOURS WITH MEALS 10/10 completed Not Available Not Available Not Available Combigan 0.2 %-0.5 % eye drops 08/01 completed Not Available Not Available Not Available Lumigan 0.01 % eye drops 08/01 completed Medicati on ID: [id number] B rand Name: Lumigan Send Method: E-Prescr ibed Sub s Allowed: subs OK Medic ationGen ericName : Lumigan Not Available Not Available Not Available Simbrinza 1 %-0.2 % eye drops,allison pension SHAKE LIQUID AND INSTILL 1 DROP IN BOTH EYES TWICE DAILY active Not Available Not Available No t Available Rhopressa 0.02 % eye drops INSTILL 1 DROP IN BOTH EYES EVERY EVENING active Not Available Not Available No t Available Vitals Date Recorded Body height Body mass index (BMI) Body weight Provider Name and Address Organization Details Last Updated DateTime 08/01/2024 160.02 cm 29.9 kg/m2 64295.11 g DAVID TROTTER [place] - [facility] 08/01/2024 09:25:37 Date Recorded Body height Body mass index (BMI) Body weight Provider Name and Address Organization Details Last Updated DateTime 10/10/2024 160.02 cm 31 kg/m2 23120.66 g Aylin Rubi [place] - [facility] 10/10/2024 16:06:40 Social History None recorded. Functional Status None recorded. Mental Status None recorded. Family History Nothing Reported. Medical History Condition Response Glaucoma Y Gynecological HistoryNo gynecological history recorded. Obstetrics History GPAL:G 0 P 0 0 0 0 Past Encounters Encounter ID Performer Location Encounter Start Date Encounter Closed Date Diagnosis/Indication Diagnosis SNOMED-CT Code Diagnosis ICD10 Code Diagnosis Note [id number] YVONNE LINDSEY PA-C [facility] [address] [address] 08/01/2024 09:12:01 08/01/2024 09:50:28 Acute sinusitis 06361373 J01.90 on chronic [id number] YVONNE LINDSEY PA-C [facility] [address] [address] 10/10/2024 15:57:12 10/10/2024 16:23:33 Nasal congestion 34105827 R09.81 Acute sinusitis 37817577 J01.90 Impacted c erumen of bilateral ears 3213390996 921062 H61.23 Health Concerns Section Related Observation LastModified by Organization Detai ls LastModified Time None Recorded Concern Status LastModified by Organization Details LastModified Time None Recorded Advance Directives Directive None Recorded Payers Insurance Date Sequence Insurance Name Policy Number Policy Hernandez Covered Member ID Hernandez Member ID Guarantor Name 08/01/2024 2 [place] [facility] Madyson Vick [id number] Madyson Vick 11/24/2024 1 ED [facility] [id number] Madyson Vick [id number] Madyson Vick OBGyn Episode No OBEpisode recorded.
--- NOTE | 2024-12-08 14:14 | AM.OFFWIN_ITS ---
Intake Vital Signs 3 12/08/24 14:22 Height 5 ft 3 in Weight 171 lb BMI 30.3 BP 148/80 H Blood Pressure Location Rt brachial Position Sitting Pulse 67 Pulse Source Pulse Oximeter Temp 98.2 F Temp Source Oral Pulse Oximetry (%) 98 Oxygen Delivery Method Room Air Intake Visit Reasons: EP ? poison daniel on LT hand Intake Note: presents with itchy, rash on left wrist Patient Tobacco Use Status: Never used Tobacco Allergies codeine Adverse Reaction (Intermediate, Verified 12/08/24 14:28) Vomiting Do you need a note to return to daycare/school/sports/work: No HPI HPI Comments 2 History of Present Illness0 Details 69 y/o Female patient who presents to [facility] walk [facility] clinic with c/o very itchy Rash left wrist since Sunday. 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 [facility] Medical History (Updated 12/08/24 @ 15:08 by Ese Pichardo NP) Rash and nonspecific skin eruption Social History Patient Tobacco Use Status: Never used Tobacco Review of Systems Const All systems reviewed & are unremarkable except as noted in HPI and below Physical Exam Vital Signs: Last Vital Signs Temp 98.2 F 12/08/24 14:22 Pulse 67 12/08/24 14:22 BP 148/80 H 12/08/24 14:22 Pulse Ox 98 12/08/24 14:22 Oxygen Delivery Method Room Air 12/08/24 14:22 BMI result Body Mass Index 30.3 Const General: no acute distress Nutritional Appearance: overweight Orientation/consciousness: patient oriented x3 Skin General skin exam: dry skin, erythema and lichenification Full body images: 2 1. Erythematous Macular papular rash. Skin dry and clean. Neuro General: patient oriented x3, gait normal and moves all extremities Psych Speech and movement: Normal speech and movement present Assessment & Plan Assessment & Plan (1) Rash and nonspecific skin eruption: Code(s): R21 - Rash and other nonspecific skin eruption Plan: DDx's: Eczema vs Contact Dermatitis Ordered Steroid Cream Moisturize skin with Cereva/Vaseline/Cetaphil Medications: New 2 triamcinolone acetonide 0.1% 1 appl topical BID 15 grams 0RF 7 days R21 - Rash and other nonspecific skin eruption Coding Level of Care Code Est Pt Level 4 (22209) Diagnoses Rash and nonspecific skin eruption R21 Time Spent (min) 20
[2024-12-08 14:22] VITALS: BP 148/80; PULSE 67; TEMP 36.8; O2SAT 98; BMI 30.3
== END 2024-12-08 15:43 | disposition home or self-care (01) ==
PROVIDERS: PCP Internal Medicine Geriatric Medicine; Visit Provider Nurse Practitioner Family
DX: R21 Rash and other nonspecific skin eruption (principal)